=== PATIENT | female | born 1930 | race Caucasian/White ===

== ENCOUNTER 2019-05-30 09:42 | Emergency (ER) | payer OTHER ==
[~2019-05-30] VITALS: Ht 175.3 cm; Wt 83.9 kg
[2019-05-30 09:42] VITALS: BP_SYST 158
[2019-05-30] MEDS ORDERED: NACL 0.9% 1,000 ML IV ONE (09:45)
[2019-05-30] MEDS ORDERED: DIPH-TET-PERTUS Vaccine 0.5 ML VIAL (ADACEL) I.M. ONE (09:45)
[2019-05-30] MEDS ORDERED: LIDOCAINE 1% 10 MG/ML, 20 ML MDV SUBCUT ONE (09:45)
[2019-05-30] MEDS ORDERED: BACITRACIN 1 GM OINT TP ONE (09:45)
--- NOTE | 2019-05-30 09:45 | NUR ---
Patient to ER bed 7 to gown for evaluation. Side rails up.
--- NOTE | 2019-05-30 09:50 | NUR ---
ER at bedside examining patient.
--- NOTE | 2019-05-30 09:50 | NUR ---
pt arrives via [facility] s/p fall and lac to the right eyebrow. Pt reports falling on the kitchen floor. Denies LOC. on Pt is AAO x2. Pt is currently refusing to have an IV placed and to have lac sutured. Pt's son was called and is on his way. Addendum: 05/30/19 at 1006 by [facility] pt is AAOx4.
--- NOTE | 2019-05-30 10:03 | NUR ---
pt is refusing to have an IV placed, labs drawn, EKG, to have right eyebrow lac sutured, and to be examined by MD. Pt is AAOx4.
--- NOTE | 2019-05-30 10:17 | NUR ---
pt's sons, Van and Luís, are at the bedside. Both sons state that they want the pt to be seen by her PMD at [facility].
--- NOTE | 2019-05-30 10:32 | NUR ---
PT is AAOX4. Pt will leave the hospital w/ her two sons, Luís and Van. AMA from signed by the pt.
== END 2019-05-30 10:32 | disposition left against medical advice (07) ==
LOC: SED 09:42
DX: S01.111A Laceration without foreign body of right eyelid and periocular area, initial encounter (principal); R55 Syncope and collapse; I10 Essential (primary) hypertension; E11.9 Type 2 diabetes mellitus without complications; Z90.710 Acquired absence of both cervix and uterus; W18.39XA Other fall on same level, initial encounter; Y93.89 Activity, other specified; Y92.098 Other place in other non-institutional residence as the place of occurrence of the external cause; Y99.8 Other external cause status
CPT/HCPCS: 71045; 99283